=== PATIENT | female | born 1985 | race Caucasian/White ===

== ENCOUNTER 2022-06-10 12:45 | Emergency (ER) | payer OTHER ==
[2022-06-10 13:09] VITALS: BP 145/89; PULSE 73; RESP 18; TEMP 98.7; BMI 42.3
[2022-06-10] MEDS ORDERED: SODIUM CHLORIDE 1,000 ML IV STA (14:19)
[2022-06-10] MEDS ORDERED: ACETAMINOPHEN 1000 MG/100 ML BAG IVPB ONE (14:19)
[2022-06-10] MEDS ORDERED: ACETAMINOPHEN 500 MG TABLET (FP) PO ONE (14:49)
[2022-06-10] MEDS ORDERED: ACETAMINOPHEN 500 MG TABLET (FP) ONE (15:10)
[2022-06-10 16:02] LABS: BASO % 0.4 % (0-2.0); EOS % 1.2 % (0-4.5); HEMATOCRIT 34.7 % (32.4-45.2); LYMPH % 23.5 % (8-40); MCH 23.2 pg (25.7-33.7); MCHC 31.6 g/dl (32.0-36.0); MEAN CELL VOLUME 73.4 fl (80-96); MEAN PLT VOLUME 8.9 fl (7.5-11.1); MONO % 5.6 % (3.8-10.2); NEUT % 69.3 % (42.8-82.8); PLATELET COUNT 409 10^3/uL (134-434); RBC 4.72 M/mm3 (3.60-5.2); RDW 17.2 % (11.6-15.6); WHITE BLOOD COUNT 10.1 K/mm3 (4.0-10.0)
[2022-06-10 16:06] LABS: CHLORIDE 105 mmol/L (98-107); SODIUM 141 mmol/L (136-145)
[2022-06-10 16:07] LABS: CALCIUM 9.5 mg/dL (8.5-10.1)
[2022-06-10 16:08] LABS: ANION GAP 8 MMOL/L (8-16); BLOOD UREA NITROGEN 10.4 mg/dL (7-18); CO2 28 mmol/L (21-32); GLUCOSE,RANDOM 102 mg/dL (74-106); MAGNESIUM 2.2 mg/dL (1.8-2.4)
[2022-06-10 16:09] LABS: ALBUMIN 3.4 g/dl (3.4-5.0); LIPASE 182 U/L (73-393)
[2022-06-10 16:11] LABS: CREATININE 0.7 mg/dL (0.55-1.3); SGOT/AST 11 U/L (15-37); SGPT/ALT 19 U/L (13-61)
[2022-06-10 16:13] LABS: BILIRUBIN,TOTAL 0.2 mg/dL (0.2-1)
[2022-06-10 16:14] LABS: ALK PHOS 106 U/L (45-117)
[2022-06-10 16:39] LABS: PH,URINE 7.5 (5.0-8.0); URINE APPEARANCE CLEAR; URINE BILIRUBIN NEGATIVE (NEGATIVE); URINE COLOR YELLOW; URINE GLUCOSE (UA) NEGATIVE (NEGATIVE); URINE KETONE NEGATIVE (NEGATIVE); URINE LEUK ESTERASE NEGATIVE (NEGATIVE); URINE NITRITE NEGATIVE (NEGATIVE); URINE PROTEIN TRACE (NEGATIVE); URINE UROBILINOGEN 0.2 mg/dL (0.2-1.0)
[2022-06-10 16:42] LABS: HCG,QUALITATIVE URINE Negative
== END 2022-06-10 16:48 | disposition home or self-care (01) ==
LOC: JER 12:45
DX: R07.89 Other chest pain (principal)
CPT/HCPCS: 0241U-QW; 36415; 71046-TC-FY; 80053; 81003; 83690; 83735; 84484; 84703; 85025; 87086; 93005; 93010; 99285-25

== ENCOUNTER 2022-08-29 15:14 | Emergency (ER) | payer OTHER ==
[2022-08-29 15:21] VITALS: BP 122/82; PULSE 75; RESP 20; TEMP 98.1; BMI 36.3
[2022-08-29 18:17] LABS: BASO % 0.5 % (0-2.0); EOS % 1.1 % (0-4.5); EPI CELLS 2 /uL (0-25.1); HEMATOCRIT 35.9 % (32.4-45.2); HEMOGLOBIN 11.4 GM/dL (10.7-15.3); HYALINE CASTS 0 /uL (0-3.1); LYMPH % 20.2 % (8-40); MCH 23.2 pg (25.7-33.7); MCHC 31.8 g/dl (32.0-36.0); MEAN CELL VOLUME 73.2 fl (80-96); MONO % 4.7 % (3.8-10.2); NEUT % 73.5 % (42.8-82.8); PH,URINE 5.5 (5.0-8.0); PLATELET COUNT 350 10^3/uL (134-434); RDW 18.4 % (11.6-15.6); URINE APPEARANCE CLEAR; URINE BACTERIA 17 /uL (0-1359); URINE BILIRUBIN NEGATIVE (NEGATIVE); URINE COLOR YELLOW; URINE GLUCOSE (UA) NEGATIVE (NEGATIVE); URINE KETONE 1+ (NEGATIVE); URINE LEUK ESTERASE NEGATIVE (NEGATIVE); URINE NITRITE NEGATIVE (NEGATIVE); URINE PROTEIN NEGATIVE (NEGATIVE); URINE RBC 12 /uL (0-23.9); URINE UROBILINOGEN 0.2 mg/dL (0.2-1.0); URINE WBC 4 /uL (0-25.8); WHITE BLOOD COUNT 12.4 K/mm3 (4.0-10.0)
[2022-08-29 19:53] LABS: ALBUMIN 3.4 g/dl (3.4-5.0); BLOOD UREA NITROGEN 9.9 mg/dL (7-18); CALCIUM 9.6 mg/dL (8.5-10.1)
[2022-08-29 19:57] LABS: CREATININE 0.6 mg/dL (0.55-1.3)
[2022-08-29 19:58] LABS: BILIRUBIN,TOTAL 0.4 mg/dL (0.2-1); TOT PROT 7.3 g/dl (6.4-8.2)
== END 2022-08-29 22:27 | disposition home or self-care (01) ==
LOC: JER 15:14
DX: O46.91 Antepartum hemorrhage, unspecified, first trimester (principal); Z3A.10 10 weeks gestation of pregnancy
CPT/HCPCS: 36415; 76817-TC; 80053; 81003; 84702; 85025; 86850; 86900; 86901; 99284-25

== ENCOUNTER 2023-02-21 11:53 | Emergency (ER) | payer OTHER ==
[2023-02-21 12:06] VITALS: BMI 35.7
[2023-02-21 14:35] VITALS: BP 138/79; PULSE 67; RESP 22; TEMP 98.5
== END 2023-02-21 14:05 | disposition home or self-care (01) ==
LOC: JERFT 11:53 → JER 11:53
DX: O26.893 Other specified pregnancy related conditions, third trimester (principal); J02.9 Acute pharyngitis, unspecified; R05.9 Cough, unspecified; R50.9 Fever, unspecified; R07.0 Pain in throat; R51.9 Headache, unspecified; Z3A.35 35 weeks gestation of pregnancy
CPT/HCPCS: 99283-25

== ENCOUNTER 2023-05-18 11:19 | Day surgery (SDC) | payer OTHER ==
[2023-05-18 11:41] LABS: BASO % 0.4 % (0-2.0); EOS % 1.1 % (0-4.5); HEMATOCRIT 40.5 % (32.4-45.2); HEMOGLOBIN 13.5 GM/dL (10.7-15.3); LYMPH % 29.6 % (8-40); MCH 26.9 pg (25.7-33.7); MCHC 33.3 g/dl (32.0-36.0); MEAN CELL VOLUME 80.7 fl (80-96); MEAN PLT VOLUME 7.7 fl (7.5-11.1); MONO % 5.1 % (3.8-10.2); NEUT % 63.8 % (42.8-82.8); PLATELET COUNT 342 10^3/uL (134-434); RBC 5.02 M/mm3 (3.60-5.2); RDW 15.9 % (11.6-15.6)
[2023-05-18 11:46] VITALS: BMI 34.9
[2023-05-18 11:50] LABS: INR 0.97 (0.83-1.09); PROTHROMBIN TIME (PATIENT) 11.3 SEC (9.7-13.0)
[2023-05-18 12:08] LABS: CHLORIDE 108 mmol/L (98-107); POTASSIUM 4.3 mmol/L (3.5-5.1); SODIUM 143 mmol/L (136-145)
[2023-05-18 12:10] LABS: CALCIUM 9.1 mg/dL (8.5-10.1)
[2023-05-18 12:11] LABS: ALBUMIN 3.6 g/dl (3.4-5.0); ANION GAP 6 MMOL/L (8-16); BLOOD UREA NITROGEN 12.2 mg/dL (7-18); CO2 30 mmol/L (21-32); GLUCOSE,RANDOM 103 mg/dL (74-106)
[2023-05-18 12:14] LABS: CREATININE 0.6 mg/dL (0.55-1.3); SGOT/AST 20 U/L (15-37); SGPT/ALT 31 U/L (13-61)
[2023-05-18 12:15] LABS: BILIRUBIN,TOTAL 0.5 mg/dL (0.2-1); TOT PROT 7.6 g/dl (6.4-8.2)
[2023-05-18 12:17] LABS: ALK PHOS 133 U/L (45-117)
[2023-05-18] MEDS ORDERED: MIDAZOLAM HCL 2 MG/2 ML SINGLE DOSE VIAL ONE (13:10)
[2023-05-18] MEDS ORDERED: ROCURONIUM BROMIDE 50 MG/5 ML SYRINGE ONE (13:10)
[2023-05-18] MEDS ORDERED: LIDOCAINE HCL/PF 2% SDV 5ML VIAL ONE (13:39)
[2023-05-18] MEDS ORDERED: BUPIVACAINE HCL/PF 0.5% (5MG/ML) 10 ML VIAL IJ ONE (13:49)
[2023-05-18] MEDS ORDERED: ePHEDrine SULFATE 50 MG/1 ML AMPULE ONE (13:52)
[2023-05-18] MEDS ORDERED: SUGAMMADEX SODIUM 200 MG/2 ML VIAL ONE (14:00)
[2023-05-18] MEDS ORDERED: ONDANSETRON 4 MG/2 ML VIAL IVPUSH PRN (14:24)
[2023-05-18] MEDS ORDERED: oxyCODONE HCL 5 MG TABLET PO PRN (14:24)
[2023-05-18 15:43] VITALS: RESP 18
[2023-05-18 16:13] VITALS: BP 162/78; PULSE 52; TEMP 97.8
== END 2023-05-18 16:25 | disposition home or self-care (01) ==
LOC: JASU-SURG 11:19
PROVIDERS: ATTEND Obstetrics & Gynecology
PROC: 0UB74ZZ Excision of Bilateral Fallopian Tubes, Percutaneous Endoscopic Approach (ICD-10-PCS; principal; 2023-05-18 13:09)
DX: Z30.2 Encounter for sterilization (principal)
CPT/HCPCS: 36415; 80053; 84702; 85025; 85610; 86850; 86900; 86901; 88302-TC; 94760